=== PATIENT | female | born 1985 | race Caucasian/White ===

== ENCOUNTER 2016-07-25 10:59 | Emergency (ER) ==
[2016-07-25 11:04] VITALS: BP 125/83; TEMP 98.9; BMI 28.3
[2016-07-25 11:37] LABS: BASOPHILS % (AUTO) 0.3 % (0.0-3.0); EOSINOPHILS % (AUTO) 0.2 % (0.0-7.0); HEMATOCRIT 40.3 % (37.0-47.0); HEMOGLOBIN 14.2 g/dl (12.0-16.0); IMMATURE GRANULOCYTE % (AUTO) 0.4 % (0.0-5.0); LYMPHOCYTES # (AUTO) 1.8 K/uL (0.60-3.4); LYMPHOCYTES % (AUTO) 15.5 (10.0-50.0); MEAN CORPUSCULAR HEMOGLOBIN 30.9 pg (27.0-31.0); MEAN CORPUSCULAR HGB CONC 35.2 (31.8-35.4); MEAN CORPUSCULAR VOLUME 87.8 fl (81.0-99.0); MONOCYTES # (AUTO) 0.5 K/uL (0.4-2.0); MONOCYTES % (AUTO) 4.2 (0-10); NEUTROPHILS # (AUTO) 9.1 K/ul (2.0-6.9); NEUTROPHILS % (AUTO) 79.4; PLATELET COUNT 290 10^3/uL (140-440); RED BLOOD COUNT 4.59 10^6/ul (4.20-5.40); WHITE BLOOD COUNT 11.51 K/ul (4.6-10.2)
[2016-07-25 11:59] LABS: ALBUMIN 4.4 g/dL (3.4-5.0); ALBUMIN/GLOBULIN RATIO 1.33; ANION GAP 14.5; BILIRUBIN,TOTAL 0.56 mg/dL (0.00-1.20); BUN/CREATININE RATIO 18.91; CALCIUM 9.8 mg/dL (8.2-10.2); CREATININE 0.74 mg/dL (0.60-1.30); POTASSIUM 3.5 mmol/L (3.5-5.10); TOTAL PROTEIN 7.7 g/dL (6.4-8.2)
[2016-07-25 12:26] LABS: SERUM PREGNANCY INTERNAL QC INTERNAL QC VALID
--- NOTE | 2016-07-25 12:54 | CT ---
EXAM: CT of the head without contrast History: Dizziness. Technique: Multiplanar CT images through the head were obtained without the administration of IV co ntrast Findings: The visualized paranasal sinuses and mastoid air cells are clear in general. No acute ca lvarial abnormalities. Intracranially the ventricular and cisternal spaces are normal in size, shape and configuration for a patient of this age. No dominant mass or midline shift. No hydrocephalous. No acute intracrania l hemorrhage or abnormal extraaxial fluid collections. Impression: No acute intracranial process.
--- NOTE | 2016-07-25 13:36 | ED.PDOC ---
General ED Provider: Dr. NICKY FORTUNE Chief Complaint: Dizziness Stated Complaint: dizziness Time Seen by Physician: 11:00 (alberto present at bedside during neuro exam) Mode of Arrival: Wheelchair Information Source: Patient Exam Limitations: No limitations Primary Care Provider: MARIANNA WHITNEY Nursing and Triage Documentation Reviewed and Agree: Yes Neurological Complaint Exam - Dizziness Complaint/Exam Onset: Gradual Duration: 2 days Symptoms Are: Still present Timing: Intermittent Episodes Lasting: Hours Initial Severity: Mild Current Severity: Mild Character: Reports: Dizzy Aggravating: Reports: None Alleviating: Reports: None Associated Signs and Symptoms: Denies: Nausea, Vomiting, Diaphoresis, Tinnitus, Chest pain, Short of air, Palpitations, Unsteady gait, GI blood loss, Visual changes, Decreased oral intake, Change in medication, Change in diet, OTC meds, Loss of balance Cardiac Risk Factors: Reports: None CVA Risk Factors: Reports: None Related Surgical History: Reports: None JVD Present: No Carotid Bruit Present: No Rectal Heme Positive: No Glascow Coma Scale (see protocol): 15 Nystagmus Present: No Gag Reflex Present: Yes Meningeal Signs Positive: No Focal Weakness: Present: None Focal Sensory Loss: Present: None Gait: Normal Babinski Sign: Negative Right, Negative Left Heel to Toe Normal: No Sofia-Hallpike Test Positive: No Differential Diagnoses: Hypovolemia Quality Indicators for Cardiac Chest Pain: EKG in 10min. Quality Indicators for AMI: EKG in 10min. Quality Indicator For Non-Traumatic Chest Pain/Syncope: EKG Performed Review of Systems - Review Of Systems Constitutional: Reports: No symptoms Eyes: Reports: No symptoms Ears, Nose, Mouth, Throat: Reports: No symptoms Respiratory: Reports: No symptoms Cardiac: Reports: No symptoms GI: Reports: No symptoms : Reports: No symptoms Musculoskeletal: Reports: No symptoms Skin: Reports: No symptoms Neurological: Reports: Other (dizzy) Endocrine: Reports: No symptoms Hematologic/Lymphatic: Reports: No symptoms All Other Systems: Reviewed and Negative Past Medical History - Past Medical History Previously Healthy: Yes Endocrine: Reports: None Cardiovascular: Reports: None Respiratory: Reports: None Hematological: Reports: None Gastrointestinal: Reports: None Genitourinary: Reports: None Neuro/Psych: Reports: None Musculoskeletal: Reports: None Cancer: Reports: None Last Menstrual Period: 2 weeks - Surgical History General Surgical History: Reports: None - Family History Family History: Reports: None - Social History Smoking Status: Never smoker Hx Substance Use: No Alcohol Screening: None Physical Exam - Physical Exam Appearance: Well-appearing, No pain distress, Well-nourished Eyes: EMILY, EOMI, Conjunctiva clear ENT: Ears normal, Nose normal, Oropharynx normal Respiratory: Airway patent, Breath sounds clear, Breath sounds equal, Respirations nonlabored Cardiovascular: RRR, Pulses normal, No rub, No murmur GI/: Soft, Nontender, No masses, Bowel sounds normal, No Organomegaly Musculoskeletal: Normal strength, ROM intact, No edema, No calf tenderness Skin: Warm, Dry, Normal color Neurological: Sensation intact, Motor intact, Reflexes intact, Cranial nerves intact, Alert, Oriented Psychiatric: Affect appropriate, Mood appropriate Physician Notification - Case Discussed Physician Notified: pmd Time of Notification: 13:36 (start on antivert and ask her to call office ) Critical Care Note - Critical Care Note Total Time (mins): 0 Course - Course Hematology/Chemistry: 07/25/16 11:34 07/25/16 11:34 Orders, Labs, Meds: Lab Review 07/25/16 11:34 WBC 11.51 H RBC 4.59 Hgb 14.2 Hct 40.3 MCV 87.8 MCH 30.9 MCHC 35.2 RDW Coeff of [place] 12.4 Plt Count 290 Immature Gran % (Auto) 0.4 Neut % (Auto) 79.4 Lymph % (Auto) 15.5 [place] % (Auto) 4.2 Eos % (Auto) 0.2 Baso % (Auto) 0.3 Immature Gran # (Auto) 0.1 Neut # 9.1 H Lymph # 1.8 [place] # 0.5 Eos # 0.0 Baso # 0.0 Sodium 142 Potassium 3.5 Chloride 108 H Carbon Dioxide 23 Anion Gap 14.5 BUN 14 Creatinine 0.74 Estimated GFR (MDRD) 90.00 BUN/Creatinine Ratio 18.91 Glucose 118 H Lactic Acid 8.3 Calcium 9.8 Total Bilirubin 0.56 AST 16 ALT 12 Alkaline Phosphatase 72 Total Protein 7.7 Albumin 4.4 Globulin 3.3 Albumin/Globulin Ratio 1.33 Serum , Qual Negative Orders Category Date Time Status EKG-(ED ONLY) Stat CARDIO 07/25/16 11:04 Completed BLOOD CULTURE Stat LAB 07/25/16 11:34 Received CBC W/ AUTO DIFF Stat LAB 07/25/16 11:34 Completed COMPREHENSIVE METABOLIC PANEL Stat LAB 07/25/16 11:34 Completed LACTIC ACID Stat LAB 07/25/16 11:34 Completed SERUM Stat LAB 07/25/16 11:[address] HEAD W/O CONTRAST Stat RADS 07/25/16 11:09 Completed Vital Signs: Temp Pulse Resp BP Pulse Ox 07/25/16 11:02 98.9 F 113 H 20 125/83 99 Departure - Departure Time of Disposition: 13:36 Disposition: HOME SELF-CARE Discharge Problem: Dizziness Instructions: Vertigo (ED) Condition: Good Pt referred to PMD for follow-up: No Additional Instructions: Please call your Family Physician as soon as possible to schedule a follow-up appointment. Allergies/Adverse Reactions: Allergies amoxicillin [From Amoxil] Adverse Reaction (Verified 07/25/16 11:04) Cephalosporins Adverse Reaction (Verified 07/25/16 11:04) Penicillins Adverse Reaction (Verified 07/25/16 11:04) Sulfa (Sulfonamide Antibiotics) Adverse Reaction (Verified 07/25/16 11:04) Home Medications: Ambulatory Orders 1 [No Reported Medications] 07/25/16
== END 2016-07-25 13:55 | disposition home or self-care (01) ==
LOC: ED 10:59
DX: R42 Dizziness and giddiness (principal)
CPT/HCPCS: 36415; 80053; 83605; 84703; 85025; 87040; 93005; 93010; 99283

== ENCOUNTER 2017-07-04 06:43 | Outpatient (CLI) ==
--- NOTE | 2017-07-04 12:55 | STRESSECHO ---
Date of Test: 06/07/17 Reason for Exam: CHEST PAIN Ordering Physician: DR. MARIANNA WHITNEY Current Medications: MULTIVITAMIN Resting EKG: SINUS RHYTHM/NO ACUTE CHANGES Target Heart Rate: 158/186 S-T SEGMENT STAGE MPH/GRADE HEART RATE BPM BLOOD PRESSURE MMHG RHYTHM +/- ELEVATION DEPRESSION SYMPTOMS,COMMENTS At Rest 77 102/70 SR X NONE 1 1.7/10% 117 110/68 SR X NONE 2 2.5/12% 134 122/62 SR X NONE 3 3.4/14% 4 4.2/16% 5 5.0/18% Immediately after 162 140/58 SR X FATIGUE Durations of Exercise: 8:15 Maximum Heart Rate Reached: 162 Reason for Termination: FATIGUE 4 MINUTES POST EXERCISE: HR 96 BPM, BP 118/72 MMHG, SR, +/-, NO COMMENTS INTERPRETATION: 99% OXYGEN SATURATION WITH EXERCISE ON ROOM AIR METS 10.1 1. NO EVIDENCE OF ISCHEMIA BY ST-T WAVE 2. NO CHEST PAIN OR CHEST DISCOMFORT 3. BLOOD PRESSURE RESPONSE: NORMAL 4. NO ARRHYTHMIAS MAYELIN LEFT VENTRICULAR CONTRACTILITY--RESTING AND POST EXERCISE MTDD
--- NOTE | 2017-07-04 13:14 | ECHOSTRESS ---
Date of Exam: 07/04/17 Ordering Physician: DR. MARIANNA WHITNEY Reason for Echo: CHEST PAIN, STRESS TEST--NO ISCHEMIA M-Mode Normal Adult Results LV Dimensions Normal Adult Results AoV Opening excursions >1.6 LVEDD-base- 3.5-5.8 Ao root dimensions 2.0-3.7 LVESD-base- 3.1-4.6 L. Atrium dimensions 1.9-3.8 Post. Wall thickness 0.8-1.1 IV septum (thickness) 0.7-1.2 Post. Wall excursion 0.72-1.3 Septal motion Systolic motion R. Ventricular cavity 1.5-2.0 LVEF 60% Paradoxical septal wall motion 2-D: NORMAL LEFT VENTRICULAR CONTRACTILITY--RESTING AND POST EXERCISE M-MODE: MV: AV: TV: PV: CHAMBER SIZE: WALL MOTION: NORMAL LEFT VENTRICULAR CONTRACTILITY--RESTING AND POST EXERCISE PERICARDIUM: INTERPRETATION: 1. NORMAL LEFT VENTRICULAR CONTRACTILITY--RESTING AND POST EXERCISE MTDD
== END 2017-07-04 06:44 | disposition home or self-care (01) ==
LOC: CAR 06:43
PROVIDERS: ATTEND Family Medicine
DX: R07.9 Chest pain, unspecified (principal)